=== PATIENT | female | born 1975 | race Caucasian/White ===

== ENCOUNTER → 2024-01-30 13:31 | Outpatient (REF) | payer OTHER, SELFPAY | LOC: RAD 13:31 | PROVIDERS: ATTENDING PHYSICIAN Nurse Practitioner Family | DX: R10.30 Lower abdominal pain, unspecified (principal) | CPT/HCPCS: 74177; Q9967 ==

== ENCOUNTER 2024-05-22 13:19 | Emergency (ER) | payer OTHER, SELFPAY ==
[2024-05-22 13:21] VITALS: BP 130/84
--- NOTE | 2024-05-22 14:14 | ED.GENMED ---
History of Present Illness
<Dana Brandt MD, Resident - Last Filed: 05/22/24 14:27>
General
Chief Complaint: Fainting Sensation
Time Seen by Provider: 05/22/24 13:32
History of Present Illness
History of Present Illness:
The patient presented to ED today after she fall down in the middle of the night before 3.30 am. The patient reported she started to feel dizzy for about last 4 months and yesterday night was the worst day for her dizziness. The patient reported
she went to bed around 12. 00 and she fall asleep. She woke up and went to bathroom. She remembers she was dizzy and hit her head to the door. She also added that she found herself on the floor and it was around 3.30 am. Additionally, she stated she
throw up later and called her ex- and sent her pictures to him.Her neighbor brought her to ED today. She took ibuprofen around 11.00 am. The patient also reported having diarrhea which started yesterday.
The patient has PMH of MS , HTN, Depression, PNA, Anemia
Past surgical history: Hernia repair and gynelocgal surgeries
If applicable-neuro sx onset
Date of onset of symptoms: 06/22/24
Past History
<Dana Brandt MD, Resident - Last Filed: 05/22/24 14:27>
Past History
ED Past Medical History: HTN, Psychiatric (Depression) and Other (MS, Headaches, PNA, Anemia, )
ED Past Surgical History: Gynecological (D& E) and Other (Hernia repair)
Social History
Tobacco: Smoker
Alcohol: Occasional
Drug: None
Personal:
Living: with family
Employment: Employed
Family History
Family History: Hypertension
Phy Exam
<Dana Brandt MD, Resident - Last Filed: 05/22/24 14:27>
General Physical Exam
General Presentation: well appearing and moderate distress
General Skin: warm
General Mental: alert
ENT Exam
Additional ENT: bruisng and skin abrasion ~1.5 cm on the left upper nose area. Dried blood
Eye Exam
Eye Exam: EOMI and other (visual deficit on the left eye )
Eye Exam General: EOM intact: bilateral and abnormal pupil: left (due MS? )
Pupil Exam: Left: dilated (due MS? )
Cardiovascular Exam
Cardiovascular Exam: regular rate/rhythm, no edema, no JVD and no murmur
Pulmonary Exam
Pulmonary Exam: lungs clear, no respiratory distress, no rales, chest non tender, no crackles, no rhonchi, no stridor and no wheezing
Gastrointestinal Exam
Gastrointestinal Exam: soft and non distended
Neurological Exam
Neurological Exam: alert, oriented x3, CN II-XII intact, no motor deficits and normal reflexs
Course
<Dana Brandt MD, Resident - Last Filed: 05/22/24 14:27>
Orders/Labs/Results
Orders:
Orders
05/22/24 14:01
0.9% Sodium Chloride 500 ml [Nss] 500 ml IV BOLUS
05/22/24 14:02
Ketorolac [Toradol] 15 mg IV NOW STA
05/22/24 14:03
CT Head W/o Iv Contrast Urgent
Comment:
Reason For Exam: head trauma
05/22/24 14:10
Electrocardiogram (*1) Urgent
Reason for Study: Vertigo / Dizzy
EKG- Treatment ONCE
05/22/24 14:47
Complete Blood Count/With Diff Urgent
Comprehensive Metabolic Panel Urgent
05/22/24 15:42
Diphenhydramine [Benadryl] 25 mg IV NOW STA
Magnesium Sulfate 2 Gram/50 ml [Magnesium Sulfate] 2 gram in 50 ml IV NOW
Metoclopramide [Reglan] 10 mg IV NOW STA
05/22/24 15:43
0.9% Sodium Chloride 500 ml [Nss] 500 ml IV BOLUS
05/22/24 16:15
Diphenhydramine [Benadryl] 25 mg IV NOW STA
05/22/24 16:16
Diphenhydramine [Benadryl] 50 mg .ROUTE .STK-MED ONE
Abnormal Lab Results
05/22/24
14:47
RBC 4.14 L 10^6/uL
(4.20-5.40)
Hgb 9.9 L g/dL
(12.0-16.0)
Hct 32.0 L %
(37.0-47.0)
MCV 77.3 L fL
(81.0-99.0)
MCH 23.9 L pg
(27.0-31.0)
MCHC 30.9 L g/dL
(33.0-37.0)
RDW 17.3 H %
(11.5-14.5)
Absolute Monos (auto) 0.7 H 10^3/uL
(0.1-0.6)
Monocytes % 10.2 H %
(1.7-9.3)
Chloride 110 H mmol/L
(98-107)
Carbon Dioxide 18 L mmol/L
(22-30)
05/22/24 14:47
05/22/24 14:47
Vital Signs
Initial and Last Documented VS:
Initial Vital Signs
Temp Pulse Resp BP Pulse Ox
98.4 F 90 18 130/84 100
05/22/24 13:21 05/22/24 13:21 05/22/24 13:21 05/22/24 13:21 05/22/24 13:21
Last Documented Vital Signs
Temp Pulse Resp BP Pulse Ox
98.4 F 80 16 100/70 100
05/22/24 13:21 05/22/24 15:19 05/22/24 15:19 05/22/24 15:19 05/22/24 15:19
<Tim Loredo MD - Last Filed: 05/22/24 15:55>
Orders/Labs/Results
Orders:
Orders
05/22/24 14:01
0.9% Sodium Chloride 500 ml [Nss] 500 ml IV BOLUS
05/22/24 14:02
Ketorolac [Toradol] 15 mg IV NOW STA
05/22/24 14:03
CT Head W/o Iv Contrast Urgent
Comment:
Reason For Exam: head trauma
05/22/24 14:10
Electrocardiogram (*1) Urgent
Reason for Study: Vertigo / Dizzy
EKG- Treatment ONCE
05/22/24 14:47
Complete Blood Count/With Diff Urgent
Comprehensive Metabolic Panel Urgent
05/22/24 15:42
Diphenhydramine [Benadryl] 25 mg IV NOW STA
Magnesium Sulfate 2 Gram/50 ml [Magnesium Sulfate] 2 gram in 50 ml IV NOW
Metoclopramide [Reglan] 10 mg IV NOW STA
05/22/24 15:43
0.9% Sodium Chloride 500 ml [Nss] 500 ml IV BOLUS
05/22/24 16:15
Diphenhydramine [Benadryl] 25 mg IV NOW STA
05/22/24 16:16
Diphenhydramine [Benadryl] 50 mg .ROUTE .STK-MED ONE
Abnormal Lab Results
05/22/24
14:47
RBC 4.14 L 10^6/uL
(4.20-5.40)
Hgb 9.9 L g/dL
(12.0-16.0)
Hct 32.0 L %
(37.0-47.0)
MCV 77.3 L fL
(81.0-99.0)
MCH 23.9 L pg
(27.0-31.0)
MCHC 30.9 L g/dL
(33.0-37.0)
RDW 17.3 H %
(11.5-14.5)
Absolute Monos (auto) 0.7 H 10^3/uL
(0.1-0.6)
Monocytes % 10.2 H %
(1.7-9.3)
Chloride 110 H mmol/L
(98-107)
Carbon Dioxide 18 L mmol/L
(22-30)
05/22/24 14:47
05/22/24 14:47
Vital Signs
Initial and Last Documented VS:
Initial Vital Signs
Temp Pulse Resp BP Pulse Ox
98.4 F 90 18 130/84 100
05/22/24 13:21 05/22/24 13:21 05/22/24 13:21 05/22/24 13:21 05/22/24 13:21
Last Documented Vital Signs
Temp Pulse Resp BP Pulse Ox
98.4 F 80 16 100/70 100
05/22/24 13:21 05/22/24 15:19 05/22/24 15:19 05/22/24 15:19 05/22/24 15:19
<Benito Palomino MD - Last Filed: 05/22/24 18:11>
Orders/Labs/Results
Orders:
Orders
05/22/24 14:01
0.9% Sodium Chloride 500 ml [Nss] 500 ml IV BOLUS
05/22/24 14:02
Ketorolac [Toradol] 15 mg IV NOW STA
05/22/24 14:03
CT Head W/o Iv Contrast Urgent
Comment:
Reason For Exam: head trauma
05/22/24 14:10
Electrocardiogram (*1) Urgent
Reason for Study: Vertigo / Dizzy
EKG- Treatment ONCE
05/22/24 14:47
Complete Blood Count/With Diff Urgent
Comprehensive Metabolic Panel Urgent
05/22/24 15:42
Diphenhydramine [Benadryl] 25 mg IV NOW STA
Magnesium Sulfate 2 Gram/50 ml [Magnesium Sulfate] 2 gram in 50 ml IV NOW
Metoclopramide [Reglan] 10 mg IV NOW STA
05/22/24 15:43
0.9% Sodium Chloride 500 ml [Nss] 500 ml IV BOLUS
05/22/24 16:15
Diphenhydramine [Benadryl] 25 mg IV NOW STA
05/22/24 16:16
Diphenhydramine [Benadryl] 50 mg .ROUTE .K-MED ONE
Abnormal Lab Results
05/22/24
14:47
RBC 4.14 L 10^6/uL
(4.20-5.40)
Hgb 9.9 L g/dL
(12.0-16.0)
Hct 32.0 L %
(37.0-47.0)
MCV 77.3 L fL
(81.0-99.0)
MCH 23.9 L pg
(27.0-31.0)
MCHC 30.9 L g/dL
(33.0-37.0)
RDW 17.3 H %
(11.5-14.5)
Absolute Monos (auto) 0.7 H 10^3/uL
(0.1-0.6)
Monocytes % 10.2 H %
(1.7-9.3)
Chloride 110 H mmol/L
(98-107)
Carbon Dioxide 18 L mmol/L
(22-30)
05/22/24 14:47
05/22/24 14:47
Vital Signs
Initial and Last Documented VS:
Initial Vital Signs
Temp Pulse Resp BP Pulse Ox
98.4 F 90 18 130/84 100
05/22/24 13:21 05/22/24 13:21 05/22/24 13:21 05/22/24 13:21 05/22/24 13:21
Last Documented Vital Signs
Temp Pulse Resp BP Pulse Ox
98.4 F 80 16 100/70 100
05/22/24 13:21 05/22/24 15:19 05/22/24 15:19 05/22/24 15:19 05/22/24 15:19
Procedures
<Tim Loredo MD - Last Filed: 05/22/24 15:55>
Laceration Closure
Left Nose:
Status of Wound: clean
Size of Wound in cm: 1.5
Description of Wound Edges: sharp
Preparation: cleaned with saline
Revision/Debridement: routine- no revision
Type of Closure: single layer closure
Skin Closure Material: 6-0 nylon
Number of sutures: 2
<Tim Loredo MD - Last Filed: 05/22/24 15:55>
*Pulse Oximetry
Patient hypoxic: no
*EKG
Interpreted by ED Provider?: Yes
Heart Rate: 82
Rate: normal
Rhythm: sinus
[place]: normal axis
Interval: normal interval
QRS Pattern: normal QRS
Ischemia: no ischemia
*Critical Care Note
Total Time (30-74mins, 75-104mins- exclusive of procedures): Not Applicable
<Dana Brandt MD, Resident - Last Filed: 05/22/24 14:27>
Comment
Comment:
Head injury related trauma, exacerbated symptoms of MS, infection?
<Benito Palomino MD - Last Filed: 05/22/24 18:11>
Update Note
Update Note:
1809... Patient sitting in the chair in no distress. Appears mildly jittery. This may have been the medications. Admission was offered if she did not feel well enough to go home. Admission for management of symptoms and observation. Patient
would like to be discharged to follow-up.
ED Attending Note
<Dana Brandt MD, Resident - Last Filed: 05/22/24 14:27>
-
Portions of this chart may have been created with voice recognition software.� Occasional wrong word or��sound alike� substitutions may have occurred due to the inherent limitations of voice recognition software.
<Tim Loredo MD - Last Filed: 05/22/24 15:55>
ED Attending Note
Patient seen and examined by attending physician: Yes
I performed a history and physical exam of patient and discussed management with resident, I reviewed resident's note and agree with documented findings and plan of care.: Yes
ED Attending Note:
I have seen and evaluated the patient with a [id number] encounter. I have spoken to the resident and involved in the medical history, the physical exam, medical decision making.
Evaluation and management service: agree unless noted differently below.
Results interpretation: agree unless noted differently below.
Focused HPI: 48-year-old female with past medical history of MS, hypertension who presents to the emergency room for evaluation after apparent syncopal episode. Patient reports that she got up last night to go to the bathroom and felt lightheaded;
she says she did not make it to the bathroom and passed out. She thinks that she fell into a closet door which fell on her and she sustained a laceration to the medial aspect of the nose. She said she had some incontinence of stool. She says that
she was able to get up and go back to her bed and try to get some sleep but she has had headache and mild lightheadedness/dizziness since. She says she did have 1 episode of vomiting. She reports mild pain in the left side of her neck. Denies any
back pain. Denies any chest pain, shortness of breath. No palpitations. No abdominal pain. Denies any injuries to her extremities. She is not on any blood thinners. Only other complaint was generalized weakness. Patient denies illicit drug or
alcohol use.
Physical exam: Awake and alert with GCS of 15. Vital signs all within normal limits. She has minor superficial approximately 1.5 cm laceration to the medial aspect of the left nose. She has very subtle anisocoria with left pupil slightly greater
than right but pupils are round and reactive to light bilaterally. Extraocular movements are intact. She has no midline cervical spine tenderness, mild tenderness left paraspinal region. She has no midline tenderness of the thoracic or lumbar spine
but again mild left paraspinal tenderness in the upper lumbar region. She has no cardiac rubs gallops or murmurs. Lungs clear to auscultation bilaterally. Abdomen soft nontender to palpation. No signs of trauma to the extremities and moving all
extremities with no motor or sensory deficits.
Medical Decision Makin-year-old female presents to the emergency room after loss of consciousness�symptoms sound most consistent with syncope although seizure always a consideration especially some incontinence during the episode. She did have
some fatigue afterwards but episode occurred in the middle of the night. Vital signs are normal here. Physical exam as above. Plan to check CT head. Will check labs including a CBC and a CMP. EKG reviewed shows sinus rhythm with no AV block, no
Brugada, normal QTc, no delta wave. Will monitor on telemetry. Treat pain. Repair laceration. Patient says tetanus up-to-date. Will reassess after the above.
Labs reviewed: CBC shows stable microcytic anemia with a hemoglobin of 9.9. CMP shows marginal nongap metabolic acidosis possibly related to GI losses with vomiting today. CT head shows no acute pathology. Patient has been stable on telemetry
monitoring here. Continue to monitor. Laceration was repaired as documented in procedure note. Patient still having headache possibly concussion versus migraine�will treat with Reglan and Benadryl, magnesium, fluids. Very low clinical suspicion
for subarachnoid hemorrhage in my judgment no indication for lumbar puncture or CT angio at this point in time�this is not a thunderclap headache, patient has chronic and frequent headaches and this is consistent with her prior headaches she says.
She appears very well. Plan will be for symptomatic treatment and if unable to control symptoms consider hospitalist admission.
Discharge Plan
Departure
Patient Disposition: Home (Routine Discharge)
Date of Disposition: 05/22/24
Time of Disposition: 18:11
Patient with high blood pressure during this ER visit?: No
Discharge Problem:
Laceration of nose, Syncope, Headache
Instructions: Syncope (Fainting) (DC)
Prescriptions:
No Action
RabAvert (PF) 2.5 unit Suspension For Reconstitution
1 ml IM . DIRECTED Qty: 3 0RF
Rx Instructions:
See Rabies Vaccine Post Exposure Prophylaxis Instruction Sheet for Dosing Instructions
doxycycline hyclate 100 mg capsule
100 mg PO BID Qty: 14 0RF
Referrals:
Celso Beaver MD [Active] - Call in 1-3 days for appt (Cardiology)
Mary Ann Deluna CRNP [Family Provider] -
Activity Restrictions/Additional Instructions:
You were seen in the emergency room after an episode of passing out. You did sustain a laceration to the nose and it was repaired with stitches. You must have your stitches removed in a week�you can either see your primary doctor, follow-up here
in the emergency room, or go to urgent care to have your stitches removed. You did mention that this is not your first episode of passing out; we recommend that you follow-up with a [facility] for full assessment after episode today. If you have
any recurrent episodes or if you develop any symptoms that are concerning to you should return to the emergency room immediately.
Thank you for visiting the Emergency Department at [facility].
1. Please schedule a follow up appointment as directed. Call first thing tomorrow morning to make an appointment.
2. If indicated, please take your medications as instructed and indicated on discharge paperwork.
3. If any of your symptoms do not improve, or persist, or become more severe within 6-12 hours, please return to the emergency department for further care.
4. Please return to the emergency department if you develop a headache, neck pain/stiffness, fever greater than 100.4F, chest pain, shortness of breath, persistent nausea, vomiting, slurred speech, difficulty walking, numbness/tingling, weakness,
signs of infection or any other symptoms that are worrisome to you.
Please call [phone] if you have any questions.
Interventions
Interventions:
*Risk Screen - Suicide Last Done: 05/22/24 14:40
*General Assessment Last Done: 05/22/24 13:21
*Neglect/Abuse Screening Last Done: 05/22/24 14:40
ED- Fall Risk Assessment Last Done: 05/22/24 15:19
*ED COVID-19 Vaccine History Last Done: 05/22/24 13:21
ED- Neurological Assessment Last Done: 05/22/24 15:19
ED- Cardiac Assessment Last Done: 05/22/24 15:19
Discharge Date and Time
Print Language: TELUGU
[2024-05-22 14:31] VITALS: BP 115/82
[2024-05-22 14:39] VITALS: BMI 21.2
[2024-05-22] MEDS: TORADOL 15 MG IV (14:49)
[2024-05-22] MEDS: NSS 500 IV ×2 (14:50→15:55)
[2024-05-22 15:01] VITALS: BP 100/70
[2024-05-22 15:10] LABS: % Basophils 0.6 % (0-2); % Eosinophils 1.6 % (0-6); % Immature Granulocytes 0.1 % (0-0.5); % Lymphocytes 23.7 % (20.5-51.1); % Monocytes 10.2 % (1.7-9.3); % Neutrophils 63.8 % (42.2-75.2); Absolute Eosinophils 0.1 10^3/uL (0-0.7); Absolute Lymphocytes 1.6 10^3/uL (1.2-3.4); Absolute Monocytes 0.7 10^3/uL (0.1-0.6); Absolute Neutrophils 4.4 10^3/uL (1.4-6.5); Hemoglobin 9.9 g/dL (12.0-16.0); Mean Corp Hgb Conc. 30.9 g/dL (33.0-37.0); Mean Corpuscular Hgb 23.9 pg (27.0-31.0); Mean Corpuscular Volume 77.3 fL (81.0-99.0); Mean Platelet Volume 9.6 fL (7.4-10.4); Nucleated Red Blood Cells % 0 %; Platelet Count 267 10^3/uL (130-400); Red Blood Cell Count 4.14 10^6/uL (4.20-5.40); Red Cell Dist. Width 17.3 % (11.5-14.5); White Blood Cell Count 6.8 10^3/uL (4.8-10.8)
[2024-05-22 15:19] VITALS: BP 100/70
[2024-05-22 15:24] LABS: ALT (SGPT) 14 U/L (0-35); AST (SGOT) 28 U/L (14-36); Albumin 4.7 g/dl (3.5-5.0); Alkaline Phosphatase 81 U/L (38-126); Blood Urea Nitrogen 11 mg/dl (7-17); Calcium 9.8 mg/dl (8.4-10.2); Carbon Dioxide 18 mmol/L (22-30); Chloride 110 mmol/L (98-107); Estimated Creatinine Clearance 68 ml/min; Glucose 87 mg/dl (70-99); Potassium 4.1 mmol/L (3.5-5.1); Sodium 137 mmol/L (135-145); Total Bilirubin 0.8 mg/dl (0.2-1.3); Total Protein 7.2 g/dl (6.3-8.2); eGFR > 60.00
[2024-05-22] MEDS: REGLAN 10 MG IV (15:50)
[2024-05-22] MEDS: BENADRYL 25 MG IV ×2 (15:51→16:17)
[2024-05-22] MEDS: MAGNESIUM SULFATE 50 IV (15:52)
[2024-05-22 16:00] VITALS: BP 117/85
== END 2024-05-22 18:28 | disposition home or self-care (01) ==
LOC: EMR 13:19
PROVIDERS: Student in an Organized Health Care Education/Training Program; EMERGENCY PHYSICIAN Emergency Medicine; FAMILY PHYSICIAN Nurse Practitioner Adult Health
DX: S01.21XA Laceration without foreign body of nose, initial encounter (principal); R55 Syncope and collapse; R51.9 Headache, unspecified; W19.XXXA Unspecified fall, initial encounter; R42 Dizziness and giddiness; I10 Essential (primary) hypertension; G35 Multiple sclerosis; F32.A Depression, unspecified; D64.9 Anemia, unspecified; F17.200 Nicotine dependence, unspecified, uncomplicated; Z82.49 Family history of ischemic heart disease and other diseases of the circulatory system
CPT/HCPCS: 99284; 12011; 96365; 96375; 96376; 70450; 80053; 85025; 93005

== ENCOUNTER 2024-06-13 12:22 | Emergency (ER) | payer OTHER, SELFPAY ==
[2024-06-13 12:26] VITALS: BP 116/91
--- NOTE | 2024-06-13 13:42 | ED.GENMED ---
History of Present Illness
General
Chief Complaint: Musculo-Skeletal Complaint
Source: patient
Exam Limitations: none
Time Seen by Provider: 06/13/24 13:26
History of Present Illness
History of Present Illness:
Patient complaining of nontraumatic right leg pain. Mostly anterior thigh. Started 3 to 4 days ago. Even light touch bothers her. No increased pain with weightbearing. No swelling no distal weakness. No bowel or bladder issues. No fever. No
back pain. History of MS. Has had some leg pain. But nothing to this degree. Patient is on no medication for her MS.
Past History
Past History
ED Past Medical History: HTN, Psychiatric (Depression) and Other (MS, Headaches, PNA, Anemia, )
ED Past Surgical History: Gynecological (D& E) and Other (Hernia repair)
Social History
Tobacco: Smoker
Alcohol: Occasional
Drug: None
Personal:
Living: with family
Employment: Employed
Family History
Family History: Hypertension
Review of Systems
Review of Systems
All Other Systems: Not applicable
Constitutional: Denies fever or chills
Respiratory: Reports no symptoms
Cardiac: Reports no symptoms
ABD/GI: Reports no symptoms
Phy Exam
Physical Exam
Physical Exam:
GENERAL: Alert and oriented in no apparent distress
EYE: Orbits normal.
NECK: Supple
CARDIAC: Regular rate and rhythm without any obvious murmurs.
LUNGS: Clear breath sounds,normal
ABDOMEN: Soft, without focal tenderness or distention
NEUROLOGICAL: Alert and oriented , speech normal. Able to ambulate fully and bear weight without difficulty or significant limp. However some weakness with plantarflexion bilaterally. Hyperreflexic knees bilaterally. Mild clonus at the ankles
bilaterally.
SKIN: Warm and dry, no rash or lesion, no discoloration, skin intact.
MUSCULOSKELETAL: No edema,no deformity.Good color. No right leg swelling. No discoloration no rash. Pain with light touch to the anterior thigh. No cord. Good distal pulses and color.
PSYCH: Normal and appropriate interaction.
Course
Orders/Labs/Results
Orders:
Orders
06/13/24 13:39
IV Insert/Care/Rem.- Treatment PRN
Dexamethasone Sod Phosphate [Decadron] 4 mg IV NOW STA
Hydrocodone 5/APAP 325 [[place] 5/325] 1 tablet PO NOW STA
Ketorolac [Toradol] 15 mg IV NOW STA
Test Result ONCE
06/13/24 13:41
US Periph Venous LOWER Ext RT Urgent
Comment:
Reason For Exam: Right lower leg pain
06/13/24 15:55
Basic Metabolic Panel Urgent
Complete Blood Count/With Diff Urgent
HCG, Serum Qualitative Screen Urgent
Abnormal Lab Results
06/13/24
15:55
WBC 4.1 L 10^3/uL
(4.8-10.8)
Hgb 10.4 L g/dL
(12.0-16.0)
Hct 32.1 L %
(37.0-47.0)
MCV 74.1 L fL
(81.0-99.0)
MCH 24.0 L pg
(27.0-31.0)
MCHC 32.4 L g/dL
(33.0-37.0)
RDW 17.3 H %
(11.5-14.5)
Absolute Lymphs (auto) 1.0 L 10^3/uL
(1.2-3.4)
Chloride 109 H mmol/L
(98-107)
Carbon Dioxide 21 L mmol/L
(22-30)
BUN 6 L mg/dl
(7-17)
06/13/24 15:55
06/13/24 15:55
Vital Signs
Initial and Last Documented VS:
Initial Vital Signs
Temp Pulse Resp BP Pulse Ox
99.0 F 90 18 116/91 100
06/13/24 12:26 06/13/24 12:26 06/13/24 12:26 06/13/24 12:06/13/24 12:26
Last Documented Vital Signs
Temp Pulse Resp BP Pulse Ox
99.0 F 90 18 124/74 100
06/13/24 12:26 06/13/24 12:26 06/13/24 12:26 06/13/24 15:17 06/13/24 15:45
*Radiology
Radiology exam reviewed: radiology read reviewed (Negative ultrasound)
*Pulse Oximetry
Patient hypoxic: no
*Critical Care Note
Total Time (30-74mins, 75-104mins- exclusive of procedures): Not Applicable
Data Reviewed
Review of Other/Old Records Reveals: Labs, Records, Radiology Studies and Discharge Summary
Comment
Comment:
I suspect her pain is secondary to her MS. No physical findings to support orthopedic issue. Highly doubt DVT although ultrasound will be done for completeness. Doubt vascular issue. Doubt acute spinal issue.
Update Note
Update Note:
Right leg neuralgia. Very nervelike pain very superficial even with light touch. No vesicles or rash. Suspect this is somehow related to her MS. Will trial a short course of steroids pain management muscle relaxants and follow-up. I did offer
inpatient management if patient feels she is not comfortable following up. Patient does not want to stay at this time but will follow-up with neurology
ED Attending Note
-
Portions of this chart may have been created with voice recognition software.� Occasional wrong word or��sound alike� substitutions may have occurred due to the inherent limitations of voice recognition software.
Discharge Plan
Departure
Patient Disposition: Home (Routine Discharge)
Date of Disposition: 06/13/24
Time of Disposition: 17:27
Patient with high blood pressure during this ER visit?: No
Discharge Problem:
Right leg neuralgia, History of MS
Instructions: Neuropathic pain
Prescriptions:
New
prednisone 10 mg tablet
10 mg PO DAILY Qty: 20 0RF
Rx Instructions:
4 tablets day 1. Then 1 less tablet every other day until gone
hydrocodone-acetaminophen 5-325 mg tablet
1 tab PO Q6H PRN (Reason: Pain) Qty: 10 0RF
cyclobenzaprine 10 mg tablet
10 mg PO TID PRN (Reason: muscle spasm) Qty: 14 0RF
No Action
RabAvert (PF) 2.5 unit Suspension For Reconstitution
1 ml IM . DIRECTED Qty: 3 0RF
Rx Instructions:
See Rabies Vaccine Post Exposure Prophylaxis Instruction Sheet for Dosing Instructions
doxycycline hyclate 100 mg capsule
100 mg PO BID Qty: 14 0RF
Referrals:
Celestine Bustillo MD [Active] - Next open appointment
NONE,* [Family Provider] -
Activity Restrictions/Additional Instructions:
Your prescriptions were sent to a pharmacy
You need to have a regular neurologist for close follow-up. I did give you the name of a local neurologist above
You also need to follow-up with your primary care physician for close follow-up
Return sooner with increased pain numbness tingling weakness other neurologic symptoms or any concern for progression of MS
Interventions
Interventions:
*Risk Screen - Suicide Last Done: 06/13/24 12:27
*General Assessment Last Done: 06/13/24 12:27
*Neglect/Abuse Screening Last Done: 06/13/24 12:27
ED-Musculoskeletal Assessment Last Done: 06/13/24 13:56
Discharge Date and Time
Print Language: FINNISH
[2024-06-13] MEDS: NORCO 5/325 1 TABLET PO (13:52)
[2024-06-13] MEDS: TORADOL 15 MG IV (14:23)
[2024-06-13] MEDS: DECADRON 4 MG IV (14:24)
[2024-06-13 15:17] VITALS: BP 124/74
[2024-06-13 16:01] LABS: % Eosinophils 2.9 % (0-6); % Immature Granulocytes 0.2 % (0-0.5); % Lymphocytes 23.1 % (20.5-51.1); % Monocytes 3.9 % (1.7-9.3); % Neutrophils 68.9 % (42.2-75.2); Absolute Eosinophils 0.1 10^3/uL (0-0.7); Absolute Monocytes 0.2 10^3/uL (0.1-0.6); Absolute Neutrophils 2.8 10^3/uL (1.4-6.5); Hematocrit 32.1 % (37.0-47.0); Hemoglobin 10.4 g/dL (12.0-16.0); Mean Corp Hgb Conc. 32.4 g/dL (33.0-37.0); Mean Corpuscular Volume 74.1 fL (81.0-99.0); Nucleated Red Blood Cells % 0 %; Platelet Count 289 10^3/uL (130-400); Red Blood Cell Count 4.33 10^6/uL (4.20-5.40); Red Cell Dist. Width 17.3 % (11.5-14.5); White Blood Cell Count 4.1 10^3/uL (4.8-10.8)
[2024-06-13 16:19] LABS: HCG, Serum Qualitative Screen Negative
[2024-06-13 16:22] LABS: Blood Urea Nitrogen 6 mg/dl (7-17); Calcium 9.7 mg/dl (8.4-10.2); Carbon Dioxide 21 mmol/L (22-30); Chloride 109 mmol/L (98-107); Glucose 97 mg/dl (70-99); Potassium 4.8 mmol/L (3.5-5.1); Sodium 143 mmol/L (135-145); eGFR > 60.00
[2024-06-13 17:31] VITALS: BP 131/86
== END 2024-06-13 17:40 | disposition home or self-care (01) ==
LOC: EMR 12:22
PROVIDERS: EMERGENCY PHYSICIAN Emergency Medicine
DX: M79.2 Neuralgia and neuritis, unspecified (principal); G35 Multiple sclerosis; F17.200 Nicotine dependence, unspecified, uncomplicated
CPT/HCPCS: 99284; 96374; 96375; 80048; 84703; 85025; 93971

== ENCOUNTER → 2024-07-02 15:52 | Outpatient (REF) | payer OTHER, SELFPAY | LOC: HWRCS 15:52 | PROVIDERS: ATTENDING PHYSICIAN Student in an Organized Health Care Education/Training Program; FAMILY PHYSICIAN Family Medicine | DX: R55 Syncope and collapse (principal) | CPT/HCPCS: 93306 ==

== ENCOUNTER 2024-07-16 14:41 | Emergency (ER) | payer OTHER, SELFPAY ==
[2024-07-16 14:51] VITALS: BP 108/81
--- NOTE | 2024-07-16 15:34 | EDRN ---
Pt came to the desk questioning when she would go back and why she is sitting in the WR if she has low pulse ox. Pt reports that her pulse ox was 91% at urgent care. Pt informed that her pulse ox in triage was 100% and this RN reassessed pulse ox
which resulted 100%. Pt questioning this RN isif she needs to stay, this RN recommended patient stay to be evaluated by an ER provider d/t length of symptoms. Pt returned to WR and sitting in wheelchair.
--- NOTE | 2024-07-16 16:45 | ED.GENMED ---
History of Present Illness
General
Chief Complaint: Fever
Time Seen by Provider: 07/16/24 16:30
History of Present Illness
History of Present Illness:
Patient is a 40-year-old woman with history of MS who recently finished a steroid taper presenting to the emergency department fevers. Patient states the past 2 weeks due to having cough congestion sore throat runny nose. She works at a preschool
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 2 days ago developed fevers with a Tmax of 104.8. She does have a history of pneumonia. She went to an urgent care today and she was found to have a low oxygen saturation upon ambulation today so
they sent her to the emergency department. She denies any chest pain. Some shortness of breath. Some nausea but no vomiting. No diarrhea. Slightly decreased p.o. No weakness.
Past History
Past History
ED Past Medical History: HTN, Psychiatric (Depression) and Other (MS, Headaches, PNA, Anemia, )
ED Past Surgical History: Gynecological (D& E) and Other (Hernia repair)
Social History
Tobacco: Smoker
Alcohol: Occasional
Drug: None
Personal:
Living: with family
Employment: Employed
Family History
Family History: Hypertension
Phy Exam
Physical Exam
Physical Exam:
GENERAL: in no acute distress
HEENT: normocephalic, extraocular movements intact, moist oral mucosa
NECK: normal inspection
RESPIRATORY: no respiratory distress, diminished breath sounds to the right middle and lower lobes, no wheezing
CARDIOVASCULAR: regular rate and rhythm
ABDOMEN/: soft, non-distended, non-tender to palpation, no rebound or guarding
EXTREMITIES: non-tender, no edema/swelling
NEUROLOGIC: awake and alert, moves all extremities
SKIN: warm
Course
Orders/Labs/Results
Orders:
Orders
07/16/24 16:32
CR Chest - 2 Views Urgent
Comment:
Reason For Exam: cough
07/16/24 16:56
COVID-19 Antigen Urgent
Source: Nasal Swab
Influenza A+B Rapid Molecular Urgent
ATTILA Source: Nasal Swab
Specimen Description:
07/16/24 18:14
0.9% Sodium Chloride 1000 ml [Nss] 1,000 ml IV BOLUS
07/16/24 18:40
Ibuprofen [Motrin] 800 mg PO NOW STA
Ondansetron HCl [Zofran] 4 mg PO NOW STA
07/16/24 20:47
LevoFLOXacin [Levaquin] 750 mg PO NOW STA
Vital Signs
Initial and Last Documented VS:
Initial Vital Signs
Temp Pulse Resp BP Pulse Ox
97.9 F 86 16 108/81 100
07/16/24 14:51 07/16/24 14:51 07/16/24 14:51 07/16/24 14:51 07/16/24 14:51
Last Documented Vital Signs
Temp Pulse Resp BP Pulse Ox
98.5 F 95 22 109/67 97
07/16/24 20:47 07/16/24 20:47 07/16/24 17:58 07/16/24 20:34 07/16/24 20:45
MDM/Problems Addressed
Differential Diagnosis Includes:
Patient is a 48-year-old woman history of MS presenting to the emergency department with fevers chills headache cough congestion runny nose. Vitals here notable for an oxygen saturation of 100% while resting. Will check ambulatory pulse ox. Lungs
do show diminished breath sounds to the right. Concern for pneumonia versus URI. History and exam not consistent with PE or ACS. Will check chest x-ray and COVID and flu swab.
*Critical Care Note
Total Time (30-74mins, 75-104mins- exclusive of procedures): Not Applicable
Update Note
Update Note:
On reevaluation patient did ambulate. Pulse ox was greater than 95% however she did feel slightly lightheaded will give IV fluids and reassess. Chest x-ray per my interpretation with retrocardiac opacity. Given patient's allergies we will give
Levaquin.
Patient ambulated again with normal pulse ox. She does feel slightly lightheaded though much better than when she first arrived. After shared decision making we will discharge patient home. Considered admission however she is 48 years old who is
otherwise healthy with normal pulse ox and is feeling better so will trial outpatient antibiotics. Strict return precautions given.
ED Attending Note
-
Portions of this chart may have been created with voice recognition software.� Occasional wrong word or��sound alike� substitutions may have occurred due to the inherent limitations of voice recognition software.
Discharge Plan
Departure
Patient Disposition: Home (Routine Discharge)
Date of Disposition: 07/16/24
Time of Disposition: 20:51
Patient with high blood pressure during this ER visit?: No
Discharge Problem:
Pneumonia
Instructions: Community-Acquired Pneumonia, Adult (DC)
Prescriptions:
New
levofloxacin 750 mg tablet
750 mg PO DAILY 5 Days Qty: 5 0RF
No Action
RabAvert (PF) 2.5 unit Suspension For Reconstitution
1 ml IM . DIRECTED Qty: 3 0RF
Rx Instructions:
See Rabies Vaccine Post Exposure Prophylaxis Instruction Sheet for Dosing Instructions
doxycycline hyclate 100 mg capsule
100 mg PO BID Qty: 14 0RF
prednisone 10 mg tablet
10 mg PO DAILY Qty: 20 0RF
Rx Instructions:
4 tablets day 1. Then 1 less tablet every other day until gone
hydrocodone-acetaminophen 5-325 mg tablet
1 tab PO Q6H PRN (Reason: Pain) Qty: 10 0RF
cyclobenzaprine 10 mg tablet
10 mg PO TID PRN (Reason: muscle spasm) Qty: 14 0RF
Referrals:
Elizabeth Garcia MD [Family Provider] -
Interventions
Interventions:
ED- Cardiac Assessment Last Done: 07/16/24 18:58
ED- Neurological Assessment Last Done: 07/16/24 18:58
ED- Pulmonary Assessment Last Done: 07/16/24 18:58
ED-Skin Assessment Last Done: 07/16/24 18:58
Discharge Date and Time
Print Language: PERUVIAN
[2024-07-16 17:42] LABS: COVID-19 Antigen Negative (Negative)
[2024-07-16] MEDS: MOTRIN 800 MG PO (18:49)
[2024-07-16] MEDS: ZOFRAN 4 MG PO (18:49)
[2024-07-16] MEDS: NSS 1000 IV (18:49)
[2024-07-16 18:51] VITALS: BP 120/69
[2024-07-16 20:00] VITALS: BP 109/57
[2024-07-16 20:34] VITALS: BP 109/67
[2024-07-16] MEDS: LEVAQUIN 750 MG PO (20:57)
== END 2024-07-16 22:23 | disposition home or self-care (01) ==
LOC: EMR 14:41
PROVIDERS: EMERGENCY PHYSICIAN Student in an Organized Health Care Education/Training Program; FAMILY PHYSICIAN Family Medicine
DX: J18.9 Pneumonia, unspecified organism (principal); G35 Multiple sclerosis; I10 Essential (primary) hypertension; D64.9 Anemia, unspecified; F17.200 Nicotine dependence, unspecified, uncomplicated; Z82.49 Family history of ischemic heart disease and other diseases of the circulatory system
CPT/HCPCS: 99283; 71046; 87502; 87811

== ENCOUNTER → 2024-08-10 16:33 | Outpatient (REF) | payer OTHER, SELFPAY | LOC: MRI 3T 16:33 | PROVIDERS: ATTENDING PHYSICIAN Family Medicine | DX: G35 Multiple sclerosis (principal) | CPT/HCPCS: 70553; A9575 ==

== ENCOUNTER → 2024-08-20 16:22 | Outpatient (REF) | payer OTHER, SELFPAY | LOC: HWWDC 16:22 | PROVIDERS: ATTENDING PHYSICIAN Family Medicine | DX: Z12.31 Encounter for screening mammogram for malignant neoplasm of breast (principal) | CPT/HCPCS: 77063; 77067 ==

== ENCOUNTER → 2024-09-14 12:49 | Outpatient (REF) | payer OTHER, SELFPAY | LOC: HWRAD 12:49 | PROVIDERS: ATTENDING PHYSICIAN Family Medicine | DX: R19.8 Other specified symptoms and signs involving the digestive system and abdomen (principal); D64.9 Anemia, unspecified; R10.30 Lower abdominal pain, unspecified | CPT/HCPCS: 76830; 76856 ==

== ENCOUNTER 2024-10-18 06:24 | Day surgery (SDC) | payer OTHER, SELFPAY | END 2024-10-18 12:39 | disposition home or self-care (01) | LOC: GI 06:24 | PROVIDERS: ATTENDING PHYSICIAN Internal Medicine Gastroenterology | DX: D50.0 Iron deficiency anemia secondary to blood loss (chronic) (principal); K62.5 Hemorrhage of anus and rectum; R19.4 Change in bowel habit; R63.4 Abnormal weight loss; K64.8 Other hemorrhoids; K64.4 Residual hemorrhoidal skin tags; K63.9 Disease of intestine, unspecified | CPT/HCPCS: 45380; 43239; 88305 ==

== ENCOUNTER 2024-11-14 18:49 | Emergency (ER) | payer OTHER, SELFPAY ==
[2024-11-14 18:51] VITALS: BP 130/81
[2024-11-14 19:07] VITALS: BP 133/83
[2024-11-14 19:30] LABS: % Basophils 0.9 % (0-2); % Eosinophils 2.9 % (0-6); % Immature Granulocytes 0.3 % (0-0.5); % Monocytes 6.4 % (1.7-9.3); % Neutrophils 56.5 % (42.2-75.2); Absolute Basophils 0.1 10^3/uL (0-0.2); Absolute Eosinophils 0.2 10^3/uL (0-0.7); Absolute Lymphocytes 2.3 10^3/uL (1.2-3.4); Absolute Monocytes 0.4 10^3/uL (0.1-0.6); Absolute Neutrophils 3.9 10^3/uL (1.4-6.5); Hematocrit 34.2 % (37.0-47.0); Hemoglobin 10.2 g/dL (12.0-16.0); Mean Corp Hgb Conc. 29.8 g/dL (33.0-37.0); Mean Corpuscular Hgb 21.6 pg (27.0-31.0); Mean Corpuscular Volume 72.3 fL (81.0-99.0); Mean Platelet Volume 8.9 fL (7.4-10.4); Nucleated Red Blood Cells % 0 %; Platelet Count 323 10^3/uL (130-400); Red Blood Cell Count 4.73 10^6/uL (4.20-5.40); Red Cell Dist. Width 17.7 % (11.5-14.5); White Blood Cell Count 6.9 10^3/uL (4.8-10.8)
[2024-11-14] MEDS: NSS 1000 IV (19:32)
[2024-11-14] MEDS: REGLAN 10 MG IV (19:33)
[2024-11-14] MEDS: BENADRYL 25 MG IV (19:33)
--- NOTE | 2024-11-14 19:45 | ED.GENMED ---
History of Present Illness
<Krysta Caballero PA-C - Last Filed: 11/15/24 02:26>
General
Chief Complaint: Fainting Sensation
Source: patient
Exam Limitations: none
Time Seen by Provider: 11/14/24 19:08
Nursing documentation reviewed up to this point in time: agreed with
History of Present Illness
History of Present Illness:
49 y/o F with h/o MS, no meds, h/o migraines
here with sudden onset of lightheadedness with standing that began around 2 pm when she stood up form th ecouch
she says she subsequently passed out. she had no injuries; ever since then, she hasn't felt well
developed gradual onset of sypmtoms like chest pressure, genearlized headache, shortness of breath, nausea, continued lightheadedness
she also feels trouble focusing, saying that her was talking to her and she wasn't following what he said
she has not had fever, chills, cough, sore throat, vomiting, diarrhea
this headache is a stabbing which doesn't feel like her normal migraines
she has passed out previously but has never seen pan greaser
she is not followed by neurologist because 'i can't get in.'
pt says she also feels her R leg is numb
Past History
<Krysta Caballero PA-C - Last Filed: 11/15/24 02:26>
Past History
ED Past Medical History: HTN, Psychiatric (Depression) and Other (MS, Headaches, PNA, Anemia, )
ED Past Surgical History: Gynecological (D& E) and Other (Hernia repair)
Social History
Tobacco: Smoker
Alcohol: Occasional
Drug: None
Personal:
Living: with family
Employment: Employed
Family History
Family History: Hypertension
Review of Systems
<Krysta Caballero PA-C - Last Filed: 11/15/24 02:26>
Review of Systems
Allergies reviewed?: Yes
All Other Systems: Not applicable
Phy Exam
<Krysta Caballero PA-C - Last Filed: 11/15/24 02:26>
Physical Exam
Physical Exam:
GENERAL: Alert , anxious
HEAD: NCAT
EYE: pupils equal and reactive, no nystagmus, no photophobia
NECK: Supple,full rom, nontender
ENT: o/p clr, mmm.
CARDIAC: tachycardic . no edema
LUNGS: Clear breath sounds bilaterally, no acute respiratory distress, no wheezes/rales/rhonchi
ABDOMEN: Soft, without focal tenderness, no r/g, no cvat
NEUROLOGICAL: Alert and orientedx 4, cn intact, no facial asymmetry, 5/5 strength in UE/LE, sensation intact, romberg neg, ambulates without assistance, neg pronator drift
SKIN: Warm and dry, skin intact.
MUSCULOSKELETAL: No edema, well perfused.
PSYCH: Normal and appropriate interaction.
Course
<Krysta Caballero PA-C - Last Filed: 11/15/24 02:26>
Orders/Labs/Results
Orders:
Orders
11/14/24 18:54
EKG [Electrocardiogram (*1)] Urgent
Reason for Study: Syncope
11/14/24 18:55
EKG- Treatment ONCE
11/14/24 19:05
Complete Blood Count/With Diff Urgent
Comprehensive Metabolic Panel Urgent
Troponin I Urgent
11/14/24 19:22
CT Chest PE Study Urgent
Comment:
Reason For Exam: syncope, chest pressure, sob;
Orthostatic VS- Treatment ONCE
0.9% Sodium Chloride 1000 ml [Nss] 1,000 ml IV BOLUS
Diphenhydramine [Benadryl] 25 mg IV NOW STA
Metoclopramide [Reglan] 10 mg IV NOW STA
11/14/24 19:23
CT Head W/o Iv Contrast Urgent
Comment:
Reason For Exam: syncope, headache
11/14/24 19:31
COVID-19 Antigen Urgent
Source: Nasal Swab
Influenza A+B Rapid Molecular Urgent
ATTILA Source: Nasal Swab
Specimen Description:
11/14/24 21:32
Ketorolac [Toradol] 15 mg IV NOW STA
Ondansetron Injectable [Zofran] 4 mg IV NOW STA
Abnormal Lab Results
11/14/24
19:05
Hgb 10.2 L g/dL
(12.0-16.0)
Hct 34.2 L %
(37.0-47.0)
MCV 72.3 L fL
(81.0-99.0)
MCH 21.6 L pg
(27.0-31.0)
MCHC 29.8 L g/dL
(33.0-37.0)
RDW 17.7 H %
(11.5-14.5)
Potassium 3.3 L mmol/L
(3.5-5.1)
Carbon Dioxide 20 L mmol/L
(22-30)
Glucose 103 H mg/dl
(70-99)
Total Protein 8.9 H g/dl
(6.3-8.2)
Albumin 5.5 H g/dl
(3.5-5.0)
11/14/24 19:05
11/14/24 19:05
Vital Signs
Initial and Last Documented VS:
Initial Vital Signs
Temp Pulse Resp BP Pulse Ox
36.6 C 89 20 130/81 100
11/14/24 18:51 11/14/24 18:51 11/14/24 18:51 11/14/24 18:51 11/14/24 18:51
Last Documented Vital Signs
Temp Pulse Resp BP Pulse Ox
36.6 C 91 18 133/83 100
11/14/24 18:51 11/14/24 19:45 11/14/24 19:30 11/14/24 19:07 11/14/24 19:45
<Be Johnson DO - Last Filed: 11/14/24 20:33>
Orders/Labs/Results
Orders:
Orders
11/14/24 18:54
EKG [Electrocardiogram (*1)] Urgent
Reason for Study: Syncope
11/14/24 18:55
EKG- Treatment ONCE
11/14/24 19:05
Complete Blood Count/With Diff Urgent
Comprehensive Metabolic Panel Urgent
Troponin I Urgent
11/14/24 19:22
CT Chest PE Study Urgent
Comment:
Reason For Exam: syncope, chest pressure, sob;
Orthostatic VS- Treatment ONCE
0.9% Sodium Chloride 1000 ml [Nss] 1,000 ml IV BOLUS
Diphenhydramine [Benadryl] 25 mg IV NOW STA
Metoclopramide [Reglan] 10 mg IV NOW STA
11/14/24 19:23
CT Head W/o Iv Contrast Urgent
Comment:
Reason For Exam: syncope, headache
11/14/24 19:31
COVID-19 Antigen Urgent
Source: Nasal Swab
Influenza A+B Rapid Molecular Urgent
ATTILA Source: Nasal Swab
Specimen Description:
11/14/24 21:32
Ketorolac [Toradol] 15 mg IV NOW STA
Ondansetron Injectable [Zofran] 4 mg IV NOW STA
Abnormal Lab Results
11/14/24
19:05
Hgb 10.2 L g/dL
(12.0-16.0)
Hct 34.2 L %
(37.0-47.0)
MCV 72.3 L fL
(81.0-99.0)
MCH 21.6 L pg
(27.0-31.0)
MCHC 29.8 L g/dL
(33.0-37.0)
RDW 17.7 H %
(11.5-14.5)
Potassium 3.3 L mmol/L
(3.5-5.1)
Carbon Dioxide 20 L mmol/L
(22-30)
Glucose 103 H mg/dl
(70-99)
Total Protein 8.9 H g/dl
(6.3-8.2)
Albumin 5.5 H g/dl
(3.5-5.0)
11/14/24 19:05
11/14/24 19:05
Vital Signs
Initial and Last Documented VS:
Initial Vital Signs
Temp Pulse Resp BP Pulse Ox
36.6 C 89 20 130/81 100
11/14/24 18:51 11/14/24 18:51 11/14/24 18:51 11/14/24 18:51 11/14/24 18:51
Last Documented Vital Signs
Temp Pulse Resp BP Pulse Ox
36.6 C 91 18 133/83 100
11/14/24 18:51 11/14/24 19:45 11/14/24 19:30 11/14/24 19:07 11/14/24 19:45
Luisalt;Krysta Caballero PA-C - Last Filed: 11/15/24 02:26>
MDM/Problems Addressed
Differential Diagnosis Includes:
syncope, orthostasis, viral syndrome, covid, dehydration, PE, nstemi
MDM/Problems Addressed:
49 y/o F with h/o MS, no meds currently
here with multiple complaints
syncope today at 2 pm when she stood up and got very dizzy. she had no iinjuries from the sycope but since has had compliation of symptom: cp, sob, headache, nausea, R leg tingling that have been progressing since this afternoon
pt says she doesn't feel right
on exam she was initially tachycardic 100s and anxious; other vitals normal
lungs clear, no murmur, intact neuro exam (sensation intact to LE)
ekg nonspecific st seg flattening
trop neg
ct PE neg but with some pulm nodules
ct head neg
iv meds helped nausea some but requested something else for nauesa
toradol and zofran given
seen by ed attending
agree likely viral syndrome causing symptoms, unlikey to be cardiac dsythrythmia cause for syncope
will d/c home
pt mentioned smellign gas smell;
CO detector pulse ox was 1%
dc home
<Krysta Cbaallero PA-C - Last Filed: 11/15/24 02:26>
*Critical Care Note
Total Time (30-74mins, 75-104mins- exclusive of procedures): Not Applicable
ED Attending Note
<Krysta Caballero PA-C - Last Filed: 11/15/24 02:26>
-
Portions of this chart may have been created with voice recognition software.� Occasional wrong word or��sound alike� substitutions may have occurred due to the inherent limitations of voice recognition software.
<Be Johnson DO - Last Filed: 11/14/24 20:33>
ED Attending Note
Patient seen and examined by attending physician: Yes
I performed the substantive portion of visit, reviewed & personally made and approve the management plan that is documented in note by myself or LUIS EDUARDO.: Yes
Discharge Plan
Departure
Patient Disposition: Home (Routine Discharge)
Date of Disposition: 11/14/24
Time of Disposition: 22:29
Patient with high blood pressure during this ER visit?: No
Condition: Fair
Covid-19: Not Applicable
Discharge Problem:
Acute viral syndrome, Headache, Syncope
Instructions: Syncope (Fainting) (DC), Headache in adults - ED discharge instructions
Prescriptions:
No Action
RabAvert (PF) 2.5 unit Suspension For Reconstitution
1 ml IM . DIRECTED Qty: 3 0RF
Rx Instructions:
See Rabies Vaccine Post Exposure Prophylaxis Instruction Sheet for Dosing Instructions
doxycycline hyclate 100 mg capsule
100 mg PO BID Qty: 14 0RF
prednisone 10 mg tablet
10 mg PO DAILY Qty: 20 0RF
Rx Instructions:
4 tablets day 1. Then 1 less tablet every other day until gone
hydrocodone-acetaminophen 5-325 mg tablet
1 tab PO Q6H PRN (Reason: Pain) Qty: 10 0RF
cyclobenzaprine 10 mg tablet
10 mg PO TID PRN (Reason: muscle spasm) Qty: 14 0RF
levofloxacin 750 mg tablet
750 mg PO DAILY 5 Days Qty: 5 0RF
Referrals:
Elizabeth Garcia MD [Family Provider] -
Activity Restrictions/Additional Instructions:
Watch your symptoms closely. Follow-up with your family doctor. Your workup here was reassuring. You do have slight scarring of the lower lung and in the right upper lung that looks similar to previous. You also have a 3 mm nodule which looks
stable so it does not require follow-up.
Your blood work was reassuring, you tested negative for flu and COVID
Your potassium was minimally low at 2.3. Eat foods like bananas, avocados, as these are higher in potassium. Follow-up with your family doctor this week. Return for any worsening symptoms
Interventions
Interventions:
*Risk Screen - Suicide Last Done: 11/14/24 18:55
*General Assessment Last Done: 11/14/24 18:55
*Neglect/Abuse Screening Last Done: 11/14/24 18:55
ED- Cardiac Assessment Last Done: 11/14/24 20:30
ED- Neurological Assessment Last Done: 11/14/24 20:30
Discharge Date and Time
Print Language: UPPER SORBIAN
[2024-11-14 19:51] LABS: ALT (SGPT) 17 U/L (0-35); AST (SGOT) 28 U/L (14-36); Albumin 5.5 g/dl (3.5-5.0); Alkaline Phosphatase 70 U/L (38-126); Blood Urea Nitrogen 16 mg/dl (7-17); Calcium 10.1 mg/dl (8.4-10.2); Carbon Dioxide 20 mmol/L (22-30); Chloride 102 mmol/L (98-107); Glucose 103 mg/dl (70-99); Potassium 3.3 mmol/L (3.5-5.1); Sodium 138 mmol/L (135-145); Total Bilirubin 0.7 mg/dl (0.2-1.3); Total Protein 8.9 g/dl (6.3-8.2); eGFR > 60.00
[2024-11-14 19:55] LABS: COVID-19 Antigen Negative (Negative)
[2024-11-14 19:56] LABS: Troponin I < 0.012 ng/ml
[2024-11-14] MEDS: TORADOL 15 MG IV (21:39)
[2024-11-14] MEDS: ZOFRAN 4 MG IV (21:40)
[2024-11-14 21:49] VITALS: BP 119/81; BP 121/73; BP 121/79; PULSE 74; PULSE 75; PULSE 89
== END 2024-11-14 22:15 | disposition home or self-care (01) ==
LOC: EMR 18:49
PROVIDERS: Physician Assistant; EMERGENCY PHYSICIAN Emergency Medicine; FAMILY PHYSICIAN Family Medicine
DX: B34.9 Viral infection, unspecified (principal); R55 Syncope and collapse; R51.9 Headache, unspecified; I10 Essential (primary) hypertension; G35 Multiple sclerosis; F17.200 Nicotine dependence, unspecified, uncomplicated
CPT/HCPCS: 96374; 96375; 96361; 99284; 70450; 71275; 80053; 84484; 85025; 87502; 87811; 93005; Q9967

== ENCOUNTER 2025-03-03 11:05 | Emergency (ER) | payer OTHER, SELFPAY ==
[2025-03-03 11:05] VITALS: BMI 19.8
[2025-03-03 11:12] VITALS: BP 102/75
[2025-03-03 12:00] VITALS: BP 108/67
--- NOTE | 2025-03-03 13:57 | ED.GENMED ---
History of Present Illness
<TERRY Finley - Last Filed: 03/04/25 16:27>
General
Chief Complaint: Visual Problem
Source: patient
Exam Limitations: none
Time Seen by Provider: 03/03/25 12:42
Nursing documentation reviewed up to this point in time: agreed with
History of Present Illness
History of Present Illness:
Patient is a 49-year-old female with MS presents to the ER for evaluation. Patient has chronic optic neuritis however reports since last week she noticed decreased vision. She reports from her right eye she noticed increasing blurry vision and
sharrp pain now she reports the pain is mostly dull. Both eyes are giving her troubles and she has very poor vision at this time. She was seen by Dr. Ying ibarra for evaluation and sent for evaluation for possible MRI and steroids and possible
admission.
Pt reports she has had issues with her vision for yrs with her MS and has had acute episodes of optic neuritis in the past she does feel that this is similar.
As per Dr. He patient has not been on MS meds in years because she had side effects.
Past History
<TERRY Finley - Last Filed: 03/04/25 16:27>
Past History
ED Past Medical History: HTN, Psychiatric (Depression) and Other (MS, Headaches, PNA, Anemia, )
ED Past Surgical History: Gynecological (D& E) and Other (Hernia repair)
Social History
Tobacco: Smoker
Alcohol: Occasional
Drug: None
Personal:
Living: with family
Employment: Employed
Family History
Family History: Hypertension
Review of Systems
<TERRY Finley - Last Filed: 03/04/25 16:27>
Review of Systems
Allergies reviewed?: Yes
All Other Systems: ROS reviewed and negative except as documented in HPI and ROS
Constitutional: Reports no symptoms; Denies fever, fatigue or chills
EENT: Reports other (decreased vision from b/l eyes right greater than left )
Respiratory: Reports no symptoms
Cardiac: Reports no symptoms
ABD/GI: Reports no symptoms
: Reports no symptoms
Musculoskeletal: Reports no symptoms
Skin: Reports no symptoms
Neurological: Denies dizzy or headache
Psychiatric: Reports no symptoms
Phy Exam
<TERRY Finley - Last Filed: 03/04/25 16:27>
General Physical Exam
General Presentation: no apparent distress
General age: appears stated age
General Skin: warm and dry
General Habitus: normal
General Mental: alert
General Hydration: appears well hydrated
Eye Exam
Eye Exam: PERRL and EOMI
Eye Exam General: PERRL: bilateral and EOM intact: bilateral
Pupil Exam: Bilateral: round and reactive
Neurological Exam
Neurological Exam: alert and oriented x3
Musculoskeletal Exam
Musculoskeletal Exam: full ROM
Skin Exam
Skin Exam: normal color and warm/dry
Psychiatric Exam
Psychiatric Exam: normal mood/affect
Course
<TERRY Finley - Last Filed: 03/04/25 16:27>
Orders/Labs/Results
Orders:
Orders
03/03/25 15:00
MR Brain W/o & With Contrast Urgent
Comment: ATTN: ORBITS
Reason For Exam: decreaed vision hx of MS possible optic neuritis
OK for patient to be off Cardiac Monitoring for MRI: Yes
Recent pill cam endoscopy?: No
Pacemaker/Defibrillator?: No
Brain Aneurysm Clips?: No
Have you ever worked with metal? grinding metal? welding?: No
Cochlear(ear) implants?: No
Does Pt have a Temp Sensing Cath?: No
Does the patient have IV access?: Yes
Does the patient have any stents?: No
03/03/25 15:04
IV Insert/Care/Rem.- Treatment PRN
03/03/25 15:18
Complete Blood Count/With Diff Urgent
Comprehensive Metabolic Panel Urgent
03/03/25 15:59
Visual Acuity- Treatment ONCE
Abnormal Lab Results
03/03/25
15:18
RBC 4.06 L 10^6/uL
(4.20-5.40)
Hgb 9.5 L g/dL
(12.0-16.0)
Hct 30.1 L %
(37.0-47.0)
MCV 74.1 L fL
(81.0-99.0)
MCH 23.4 L pg
(27.0-31.0)
MCHC 31.6 L g/dL
(33.0-37.0)
RDW 19.1 H %
(11.5-14.5)
Monocytes % 9.8 H %
(1.7-9.3)
Chloride 115 H mmol/L
(98-107)
Carbon Dioxide 20 L mmol/L
(22-30)
03/03/25 15:18
03/03/25 15:18
Vital Signs
Initial and Last Documented VS:
Initial Vital Signs
Temp Pulse Resp BP Pulse Ox
97.9 F 86 18 102/75 100
03/03/25 11:12 03/03/25 11:12 03/03/25 11:12 03/03/25 11:12 03/03/25 11:12
Last Documented Vital Signs
Temp Pulse Resp BP Pulse Ox
97.9 F 83 16 125/80 100
03/03/25 11:12 03/03/25 18:50 03/03/25 18:50 03/03/25 18:50 03/03/25 18:50
<Flori Peter NP - Last Filed: 03/04/25 15:28>
Orders/Labs/Results
Orders:
Orders
03/03/25 15:00
MR Brain W/o & With Contrast Urgent
Comment: ATTN: ORBITS
Reason For Exam: decreaed vision hx of MS possible optic neuritis
OK for patient to be off Cardiac Monitoring for MRI: Yes
Recent pill cam endoscopy?: No
Pacemaker/Defibrillator?: No
Brain Aneurysm Clips?: No
Have you ever worked with metal? grinding metal? welding?: No
Cochlear(ear) implants?: No
Does Pt have a Temp Sensing Cath?: No
Does the patient have IV access?: Yes
Does the patient have any stents?: No
03/03/25 15:04
IV Insert/Care/Rem.- Treatment PRN
03/03/25 15:18
Complete Blood Count/With Diff Urgent
Comprehensive Metabolic Panel Urgent
03/03/25 15:59
Visual Acuity- Treatment ONCE
Abnormal Lab Results
03/03/25
15:18
RBC 4.06 L 10^6/uL
(4.20-5.40)
Hgb 9.5 L g/dL
(12.0-16.0)
Hct 30.1 L %
(37.0-47.0)
MCV 74.1 L fL
(81.0-99.0)
MCH 23.4 L pg
(27.0-31.0)
MCHC 31.6 L g/dL
(33.0-37.0)
RDW 19.1 H %
(11.5-14.5)
Monocytes % 9.8 H %
(1.7-9.3)
Chloride 115 H mmol/L
(98-107)
Carbon Dioxide 20 L mmol/L
(22-30)
03/03/25 15:18
03/03/25 15:18
Vital Signs
Initial and Last Documented VS:
Initial Vital Signs
Temp Pulse Resp BP Pulse Ox
97.9 F 86 18 102/75 100
03/03/25 11:12 03/03/25 11:12 03/03/25 11:12 03/03/25 11:12 03/03/25 11:12
Last Documented Vital Signs
Temp Pulse Resp BP Pulse Ox
97.9 F 83 16 125/80 100
03/03/25 11:12 03/03/25 18:50 03/03/25 18:50 03/03/25 18:50 03/03/25 18:50
<TERRY Finley - Last Filed: 03/04/25 16:27>
MDM/Problems Addressed
MDM/Problems Addressed:
Patient with MS history of chronic optic neuritis in the past with recent acute worsening changes in vision. She was evaluated by ophthalmology who recommended she come to the ER for an MRI. I did speak with radiologist MRI with and without
contrast of brain ordered with attention to orbits. Once MRI results are completed we will review with neurology for possible steroids.
[id number]:CAre of pt at this time transferred to [facility]
<Flori Peter NP - Last Filed: 03/04/25 15:28>
*Critical Care Note
Total Time (30-74mins, 75-104mins- exclusive of procedures): Not Applicable
<Flori Peter NP - Last Filed: 03/04/25 15:28>
Update Note
Update Note:
MRI report reviewed with patient. Chronic findings. No evidence of MS flare. Dr. Patton consulted. No steroids indicated. Patient will be discharged home. Encouraged to followup [facility] neurology since she has not been evaluated in many years. SHe
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 Provided number for neurology regardless.
ED Attending Note
<TERRY Finley - Last Filed: 03/04/25 16:27>
-
Portions of this chart may have been created with voice recognition software.� Occasional wrong word or��sound alike� substitutions may have occurred due to the inherent limitations of voice recognition software.
Discharge Plan
Departure
Patient Disposition: Home (Routine Discharge)
Date of Disposition: 03/03/25
Time of Disposition: 18:42
Patient with high blood pressure during this ER visit?: No
Condition: Good
Covid-19: Not Applicable
Discharge Problem:
Changes in vision
Instructions: Multiple sclerosis in adults
Prescriptions:
No Action
RabAvert (PF) 2.5 unit Suspension For Reconstitution
1 ml IM . DIRECTED Qty: 3 0RF
Rx Instructions:
See Rabies Vaccine Post Exposure Prophylaxis Instruction Sheet for Dosing Instructions
doxycycline hyclate 100 mg capsule
100 mg PO BID Qty: 14 0RF
prednisone 10 mg tablet
10 mg PO DAILY Qty: 20 0RF
Rx Instructions:
4 tablets day 1. Then 1 less tablet every other day until gone
hydrocodone-acetaminophen 5-325 mg tablet
1 tab PO Q6H PRN (Reason: Pain) Qty: 10 0RF
cyclobenzaprine 10 mg tablet
10 mg PO TID PRN (Reason: muscle spasm) Qty: 14 0RF
levofloxacin 750 mg tablet
750 mg PO DAILY 5 Days Qty: 5 0RF
Referrals:
Jason Patton MD [Active] - Call in 1-3 days for appt
Elizabeth Garcia MD [Family Provider] -
Interventions
Interventions:
*Risk Screen - Suicide Last Done: 03/03/25 11:12
*General Assessment Last Done: 03/03/25 11:12
*Neglect/Abuse Screening Last Done: 03/03/25 11:12
*ED- Fall Risk Assessment Last Done: 03/03/25 11:59
*ED COVID-19 Vaccine History Last Done: 03/03/25 15:15
*Nursing Disposition Last Done: 03/03/25 18:59
ED- Neurological Assessment Last Done: 03/03/25 11:59
ED-EENT Assessment Last Done: 03/03/25 11:59
ED Swallowing Screen Last Done: 03/03/25 11:59
Discharge Date and Time
Discharge Date/Time: 03/03/25 18:59
Print Language: ANDORRAN
[2025-03-03 14:00] VITALS: BP 112/62
[2025-03-03 15:27] LABS: % Basophils 1.2 % (0-2); % Eosinophils 3.4 % (0-6); % Immature Granulocytes 0.4 % (0-0.5); % Monocytes 9.8 % (1.7-9.3); % Neutrophils 58.2 % (42.2-75.2); Absolute Basophils 0.1 10^3/uL (0-0.2); Absolute Eosinophils 0.2 10^3/uL (0-0.7); Absolute Lymphocytes 1.5 10^3/uL (1.2-3.4); Absolute Monocytes 0.6 10^3/uL (0.1-0.6); Absolute Neutrophils 3.3 10^3/uL (1.4-6.5); Hematocrit 30.1 % (37.0-47.0); Hemoglobin 9.5 g/dL (12.0-16.0); Mean Corp Hgb Conc. 31.6 g/dL (33.0-37.0); Mean Corpuscular Hgb 23.4 pg (27.0-31.0); Mean Corpuscular Volume 74.1 fL (81.0-99.0); Mean Platelet Volume 9.2 fL (7.4-10.4); Nucleated Red Blood Cells % 0 %; Platelet Count 265 10^3/uL (130-400); Red Blood Cell Count 4.06 10^6/uL (4.20-5.40); Red Cell Dist. Width 19.1 % (11.5-14.5); White Blood Cell Count 5.6 10^3/uL (4.8-10.8)
[2025-03-03 15:43] LABS: ALT (SGPT) 16 U/L (0-35); AST (SGOT) 29 U/L (14-36); Albumin 4.1 g/dl (3.5-5.0); Alkaline Phosphatase 54 U/L (38-126); Blood Urea Nitrogen 8 mg/dl (7-17); Calcium 8.8 mg/dl (8.4-10.2); Carbon Dioxide 20 mmol/L (22-30); Chloride 115 mmol/L (98-107); Estimated Creatinine Clearance 75 ml/min; Glucose 83 mg/dl (70-99); Potassium 4.5 mmol/L (3.5-5.1); Sodium 140 mmol/L (135-145); Total Bilirubin 0.6 mg/dl (0.2-1.3); Total Protein 6.6 g/dl (6.3-8.2); eGFR > 60.00
[2025-03-03 16:10] VITALS: BP 111/78
[2025-03-03 18:50] VITALS: BP 125/80
== END 2025-03-03 18:59 | disposition home or self-care (01) ==
LOC: EMR 11:05
PROVIDERS: Nurse Practitioner; EMERGENCY PHYSICIAN Emergency Medicine; FAMILY PHYSICIAN Family Medicine
DX: H53.8 Other visual disturbances (principal); G35 Multiple sclerosis; F17.200 Nicotine dependence, unspecified, uncomplicated; H46.9 Unspecified optic neuritis; I10 Essential (primary) hypertension; Z82.49 Family history of ischemic heart disease and other diseases of the circulatory system; Z87.01 Personal history of pneumonia (recurrent)
CPT/HCPCS: 99284; 70553; 80053; 85025; A9575

== ENCOUNTER 2025-09-18 16:16 | Emergency (ER) | payer OTHER, SELFPAY ==
[2025-09-18 16:22] VITALS: BP 123/78
[2025-09-18 17:18] LABS: COVID-19 Antigen Negative (Negative)
--- NOTE | 2025-09-18 18:39 | ED.GENMED ---
History of Present Illness
General
Chief Complaint: Cold/Flu/URI Symptoms
Source: patient
Time Seen by Provider: 09/18/25 18:29
History of Present Illness
History of Present Illness:
50-year-old female presenting to the ER for evaluation of bodyaches, chills, generalized pain, sore throat, cough and a syncopal episode at home with symptoms all starting yesterday evening. Today she also endorses some nausea and vomiting. No
known sick contacts, recent travel or recent antibiotics. She was unaware of any fevers at home but states it felt as if she did have a fever.
Past History
Past History
ED Past Medical History: HTN, Psychiatric (Depression) and Other (MS, Headaches, PNA, Anemia, )
ED Past Surgical History: Gynecological (D& E) and Other (Hernia repair)
Social History
Tobacco: Smoker
Alcohol: Occasional
Drug: None
Personal:
Living: with family
Employment: Employed
Family History
Family History: Hypertension
Review of Systems
Review of Systems
All Other Systems: ROS reviewed and negative except as documented in HPI and ROS
Phy Exam
Physical Exam
Physical Exam:
GENERAL: Alert , in no apparent distress, curled up on her blanket in bed, appears uncomfortable
EYE: conjunctiva clear
Head: Small contusion to the mid forehead
NECK: Supple,
ENT: mmm.
LUNGS: no acute respiratory distress
NEUROLOGICAL: Alert and oriented
SKIN: Warm and dry, skin intact.
MUSCULOSKELETAL: well perfused.
PSYCH: Normal and appropriate interaction.
Scores
Heart Failure Risk
Heart Failure Risk Score: Not Applicable
Heart Score for Chest Pain Patients
STEMI patient?: Not applicable
Withdrawal Assessment of Alcohol
Withdrawal Assessment Completed?: Not applicable
Course
Orders/Labs/Results
Orders:
Orders
09/18/25 16:42
COVID-19 Antigen Urgent
Source: Nasal Swab
Influenza A+B Rapid Molecular Urgent
ATTILA Source: Nasal Swab
Specimen Description:
09/18/25 18:38
0.9% Sodium Chloride 1000 ml [Nss] 1,000 ml IV BOLUS
Ketorolac [Toradol] 30 mg IV NOW STA
Ondansetron Injectable [Zofran] 4 mg IV NOW STA
09/18/25 16:25
09/18/25 16:25
Vital Signs
Initial and Last Documented VS:
Initial Vital Signs
Temp Pulse Resp BP Pulse Ox
99.0 F 95 16 123/78 99
09/18/25 16:22 09/18/25 16:22 09/18/25 16:22 09/18/25 16:22 09/18/25 16:22
Last Documented Vital Signs
Temp Pulse Resp BP Pulse Ox
99.0 F 86 16 127/83 100
09/18/25 16:22 09/18/25 20:00 09/18/25 16:22 09/18/25 20:00 09/18/25 20:00
MDM/Problems Addressed
Differential Diagnosis Includes:
COVID
Flu
Pneumonia
Dehydration
Electrolyte Imbalance
MDM/Problems Addressed:
50-year-old female presenting to the ER for evaluation of multiple flulike symptoms ongoing since yesterday evening, patient tested positive for the flu while in the waiting room. Hemodynamically stable and in no acute distress. Patient states her
main concern right now is her significant pain that is likely from her MS and being exacerbated by the flu presently. She is also endorsing some nausea but no active vomiting. Will treat symptoms with fluids, Zofran and Toradol. Anticipate
discharge home. Will treat with Tamiflu.
*Pulse Oximetry
SaO2: 99
Oxygen Mode of Delivery: Room air
Patient hypoxic: no
*Critical Care Note
Total Time (30-74mins, 75-104mins- exclusive of procedures): Not Applicable
ED Attending Note
-
Portions of this chart may have been created with voice recognition software.� Occasional wrong word or��sound alike� substitutions may have occurred due to the inherent limitations of voice recognition software.
Discharge Plan
Departure
Patient Disposition: Home (Routine Discharge)
Date of Disposition: 09/18/25
Time of Disposition: 19:08
Patient with high blood pressure during this ER visit?: No
Discharge Problem:
Influenza A
Instructions: Flu in adults (DC)
Prescriptions:
New
oseltamivir [Tamiflu] 75 mg capsule
75 mg PO BID 5 Days Qty: 10 0RF
ondansetron 4 mg tablet,disintegrating
4 mg PO TIDPRN PRN (Reason: nausea/vomiting) Qty: 10 0RF
oxycodone-acetaminophen [Percocet] 5-325 mg tablet
1 tab PO Q6HPRN PRN (Reason: pain) Qty: 5 0RF
No Action
RabAvert (PF) 2.5 unit Suspension For Reconstitution
1 ml IM . DIRECTED Qty: 3 0RF
Rx Instructions:
See Rabies Vaccine Post Exposure Prophylaxis Instruction Sheet for Dosing Instructions
doxycycline hyclate 100 mg capsule
100 mg PO BID Qty: 14 0RF
prednisone 10 mg tablet
10 mg PO DAILY Qty: 20 0RF
Rx Instructions:
4 tablets day 1. Then 1 less tablet every other day until gone
hydrocodone-acetaminophen 5-325 mg tablet
1 tab PO Q6H PRN (Reason: Pain) Qty: 10 0RF
cyclobenzaprine 10 mg tablet
10 mg PO TID PRN (Reason: muscle spasm) Qty: 14 0RF
levofloxacin 750 mg tablet
750 mg PO DAILY 5 Days Qty: 5 0RF
Interventions
Interventions:
*Risk Screen - Suicide Last Done: 09/18/25 16:22
*General Assessment Last Done: 09/18/25 16:22
*Neglect/Abuse Screening Last Done: 09/18/25 16:22
*ED- Fall Risk Assessment Last Done: 09/18/25 19:05
*ED COVID-19 Vaccine History Last Done: 09/18/25 16:22
*ED Influenza Vaccine History Last Done: 09/18/25 16:22
*Nursing Disposition Last Done: 09/18/25 20:36
ED- Pulmonary Assessment Last Done: 09/18/25 19:05
Discharge Date and Time
Discharge Date/Time: 09/18/25 20:37
Print Language: NIGERIEN
[2025-09-18 19:03] VITALS: BMI 17.6
[2025-09-18] MEDS: NSS 1000 IV (19:22)
[2025-09-18] MEDS: TORADOL 30 MG IV (19:23)
[2025-09-18] MEDS: ZOFRAN 4 MG IV (19:23)
[2025-09-18 20:00] VITALS: BP 127/83
== END 2025-09-18 20:37 | disposition home or self-care (01) ==
LOC: EMR 16:16
PROVIDERS: Emergency Medicine; EMERGENCY PHYSICIAN Emergency Medicine
DX: J10.1 Influenza due to other identified influenza virus with other respiratory manifestations (principal); I10 Essential (primary) hypertension; G35.D Multiple sclerosis, unspecified; F17.200 Nicotine dependence, unspecified, uncomplicated; Z87.01 Personal history of pneumonia (recurrent); Z82.49 Family history of ischemic heart disease and other diseases of the circulatory system
CPT/HCPCS: 99284; 96374; 96375; 96361; 87502; 87811